=== PATIENT | female | born 1975 | race Caucasian/White ===

== ENCOUNTER 2019-10-28 12:38 | Emergency (ER) | payer BC ==
[2019-10-28] MEDS ORDERED: Iopamidol-370 76% 500 ML 1 ML ONE (14:45)
[2019-10-28 15:16] LABS: Bilirubin Negative (Negative); Blood, Urine Negative (Negative); Clarity Clear (Clear); Glucose, Urine (Dipstick) Normal (Negative); Leukocyte Negative Leu/uL (Negative); Nitrite Negative (Negative); Protein, Urine (Dipstick) Negative (Neg-Trace)
[2019-10-28] MEDS ORDERED: Ondansetron PF 4 MG/2 ML Vial ONE ×2 (16:17→18:33)
[2019-10-28 17:23] LABS: #Basophils 0.1 thou/uL (0.0-0.2); #Eosinphils 0.1 thou/uL (0.0-0.7); #Lymphocytes 2.6 thou/uL (1.20-3.40); #Monocytes 0.3 thou/uL (0.11-0.59); #Neutrophils 3.8 thou/uL (1.40-6.50); %Basophils 1.1 % (0.0-1.0); %Eosinophils 1.7 % (0.0-10.0); %Lymphocytes 37.1 % (21.0-51.0); %Monocytes 4.9 % (0.0-10.0); %Neutrophils 55.2 % (42.0-75.0); Hemoglobin 13.6 g/dL (12.0-16.0); Mean Corpuscular HGB CONC 33.2 g/dL (32.0-36.0); Mean Corpuscular Volume 90.2 fL (78.0-98.0); Platelet Count 231 thou/uL (130-400); RBC Distribution Width 12.5 % (11.5-14.5); Red Blood Cell (RBC) Count 4.54 mill/uL (4.20-5.40); White Blood Cell (WBC) Count 6.9 thou/uL (4.8-10.8)
[2019-10-28 17:48] LABS: ALT (SGPT) 24 U/L (8-55); AST (SGOT) 18 U/L (5-34); Albumin 4.7 g/dL (3.5-5.0); Alkaline Phosphatase 78 U/L (40-110); Anion Gap 12 mmol/L (10-20); BUN (Urea Nitrogen) 11 mg/dL (7.0-18.7); Calc. Creatinine Clearance 0 mL/min (70-130); Calcium 9.5 mg/dL (7.8-10.44); Carbon Dioxide 28 mmol/L (22-29); Chloride 103 mmol/L (98-107); Estimated GFR-MDRD 87; Globulin 2.8 g/dL (2.4-3.5); Glucose 103 mg/dL (70-105); Potassium 3.7 mmol/L (3.5-5.1); Protein, Total 7.5 g/dL (6.0-8.3); Sodium 139 mmol/L (136-145)
--- NOTE | 2019-10-28 18:25 | RAD ---
CHEST ONE VIEW: History: Syncope, hypoglycemia. FINDINGS: Normal cardiac silhouette. The lungs and pleural spaces are clear. No pneumothorax or osseous abnorma lities. IMPRESSION: No acute cardiopulmonary process. POS: PPP
--- NOTE | 2019-10-28 19:45 | CT ---
CT Abdomen Pelvis W Con History: Nausea and vomiting. Comparison: None. Findings: Lung bases are clear. No pericardial effusion. Mild periportal edema. Evidence of prior gastric bypass surgery. No dilated loops of large or small bowel. The aortic contour is nonaneurysmal. No hydroureteronephrosis. No perinephric stranding. Subtle hypod ensity interpolar right kidney too small to fully characterize. Multiple calculi of the left and right renal collecting systems. 3 x 4 mm calculus interpolar left re nal collecting system. Punctate 1 x 2 mm calculus inferior left renal collecting system. Punctate 1 x 2 mm calculus interpolar right renal collecting system. No acute osseous abnormality. The transverse processes are intact. The spleen is unremarkable as well as the pancreas. Small volume free fluid within the pelvis. Low-grade third spacing of fluid. Impression: 1. Mild periportal edema within the liver along with small volume free fluid in the pelvis and mild t hird spacing of fluid can the sequelae of overhydration versus acute hepatitis. 2. No evidence for bowel obstruction. Evidence for prior gastric bypass surgery. 3. Nonobstructive small bilateral renal calculi. No hydroureteronephrosis or calculus within the urin case bladder.
== END 2019-10-28 20:59 | disposition left against medical advice (07) ==
LOC: ERS 12:38
DX: R11.2 Nausea with vomiting, unspecified (principal); E11.9 Type 2 diabetes mellitus without complications; E03.9 Hypothyroidism, unspecified; I10 Essential (primary) hypertension; E78.5 Hyperlipidemia, unspecified; J45.909 Unspecified asthma, uncomplicated; G43.909 Migraine, unspecified, not intractable, without status migrainosus; F31.9 Bipolar disorder, unspecified
CPT/HCPCS: 36416; 71045; 74177; 80053; 81003; 84484; 85025; 93005; 96361; 96374; 96376; J2405; Q9967